=== PATIENT | female | born 2000 | race Two or more races ===

== ENCOUNTER 2018-02-26 16:20 | Emergency (ER) | payer BC, OTHER ==
[~2018-02-26] VITALS: Ht 154.9 cm; Wt 57.2 kg
[2018-02-26 16:41] VITALS: BP 133/82
== END 2018-02-26 17:38 | disposition home or self-care (01) ==
LOC: ER 16:24
DX: L05.91 Pilonidal cyst without abscess (principal)

== ENCOUNTER 2018-03-03 17:17 | Emergency (ER) | payer BC ==
[~2018-03-03] VITALS: Ht 152.4 cm; Wt 57.2 kg
[2018-03-03 17:40] VITALS: BP 135/91
[2018-03-03] MEDS ORDERED: ACETAMINOPHEN/CODEINE#3 (300/30mg) TAB PO ONE (19:15)
[2018-03-03] MEDS ORDERED: cefTRIAXone SOD 1,000 MG VL IM ONE (19:15)
[2018-03-03] MEDS ORDERED: LIDOCAINE W/ EPINEPHRINE 2% INJ 20ML VIAL ONE (20:28)
[2018-03-03] MEDS ORDERED: LIDOCAINE W/ EPINEPHRINE 2% INJ 20ML VIAL IJ ONE (21:00)
== END 2018-03-03 20:28 | disposition home or self-care (01) ==
LOC: ER 17:21
DX: L05.01 Pilonidal cyst with abscess (principal)
CPT/HCPCS: 10080; 96372; 99284; J0696

== ENCOUNTER 2018-03-05 17:36 | Emergency (ER) | payer BC ==
[~2018-03-05] VITALS: Ht 152.4 cm; Wt 57.2 kg
[2018-03-05 17:40] VITALS: BP 110/78
== END 2018-03-05 18:57 | disposition home or self-care (01) ==
LOC: ER 17:36
DX: L05.01 Pilonidal cyst with abscess (principal)

== ENCOUNTER → 2018-03-09 | Outpatient (CLI) | payer BC ==
[2018-03-09 07:40] LABS: Urine Bacteria FEW /hpf (None Seen); Urine Blood Negative /uL (Negative); Urine Mucus FEW (None Seen); Urine Specific Gravity 1.021 (1.001-1.035); Urine WBC 1 /hpf (0 - 5)
[2018-03-09 07:41] LABS: Basophils # (auto) 0.1 uL; Basophils % (auto) 0.7 % (0.0-2.0); Eosinophils # (auto) 0.1 uL; Eosinophils % (auto) 1.2 % (0.0-7.0); Hematocrit 37.8 % (36.0-46.0); Hemoglobin 13.3 g/dL (12.2-16.2); Lymphocytes # (auto) 2.3 uL; Mean Corpuscular Hemoglobin 32.5 pg (28.0-32.0); Mean Corpuscular Hgb Conc. 35.2 g/dL (32.0-36.0); Mean Corpuscular Volume 92.4 fL (80.0-100.0); Monocytes # (auto) 0.5 uL; Monocytes % (auto) 5.5 % (0.0-12.0); Neutrophils # (auto) 5.7 uL; Neutrophils % (auto) 65.6 % (37.0-80.0); Nucleated Red Blood Cells % 0.1 %; Platelet Count (auto) 224 10^3/uL (140-450); Red Cell Distribution Width 12.6 % (11.8-14.3); White Blood Cell 8.6 10^3/uL (4.4-10.8)
[2018-03-09 08:46] LABS: Albumin 3.9 g/dL (3.4-5.0); BUN/Creatinine Ratio 13.8; Bilirubin, Total 0.4 mg/dL (0.2-1.0); Calcium 8.9 mg/dL (8.5-10.1); Potassium 3.8 mmol/L (3.5-5.1); Total Protein 8.4 g/dL (6.4-8.2)
== END | disposition home or self-care (01) ==
LOC: LAB 07:13
PROVIDERS: ATTEND Internal Medicine
DX: Z00.01 Encounter for general adult medical examination with abnormal findings (principal); L05.91 Pilonidal cyst without abscess
CPT/HCPCS: 36415; 80053; 80061; 81001; 84439; 84443; 85025; 85652

== ENCOUNTER → 2019-01-09 | Outpatient (CLI) | payer BC ==
[2019-01-09 15:55] LABS: Urine WBC None Seen /hpf (0 - 5)
[2019-01-09 16:04] LABS: Basophils # (auto) 0.1 uL; Basophils % (auto) 0.8 % (0.0-2.0); Eosinophils # (auto) 0.1 uL; Eosinophils % (auto) 1.5 % (0.0-7.0); Lymphocytes # (auto) 2.5 uL; Lymphocytes % (auto) 30.6 % (10.0-50.0); Mean Corpuscular Hemoglobin 31.3 pg (28.0-32.0); Mean Corpuscular Hgb Conc. 34.1 g/dL (32.0-36.0); Mean Corpuscular Volume 91.9 fL (80.0-100.0); Monocytes # (auto) 0.5 uL; Monocytes % (auto) 6.2 % (0.0-12.0); Neutrophils % (auto) 60.9 % (37.0-80.0); Nucleated Red Blood Cells % 0.1 %; Platelet Count (auto) 155 10^3/uL (140-450); Red Blood Cells 4.14 10^6/uL (4.0-5.20); Red Cell Distribution Width 13.8 % (11.8-14.3); White Blood Cell 8.1 10^3/uL (4.4-10.8)
[2019-01-09 16:17] LABS: Albumin 4.1 g/dL (3.4-5.0); BUN/Creatinine Ratio 14.1; Calcium 8.9 mg/dL (8.5-10.1); Potassium 3.6 mmol/L (3.5-5.1)
[2019-01-09 16:21] LABS: Bilirubin, Total 0.4 mg/dL (0.2-1.0); Total Protein 8.4 g/dL (6.4-8.2)
[2019-01-09 16:29] LABS: Urine Bacteria NONE SEEN /hpf (None Seen); Urine Blood Negative /uL (Negative); Urine Specific Gravity 1.016 (1.001-1.035)
== END | disposition home or self-care (01) ==
LOC: LAB 15:14
PROVIDERS: ATTEND Internal Medicine
DX: L74.510 Primary focal hyperhidrosis, axilla (principal)
CPT/HCPCS: 36415; 80053; 81001; 84439; 84443; 85025; 85652; 86706

== ENCOUNTER → 2019-12-27 | Outpatient (CLI) | payer BC ==
[2019-12-27 12:30] LABS: Basophils # (auto) 0 10 ^3/uL (0-0.2); Basophils % (auto) 0.3 % (0.0-2.0); Eosinophils # (auto) 0.1 10 ^3/uL (0-0.8); Eosinophils % (auto) 1.1 % (0.0-7.0); Hematocrit 39.5 % (36.0-46.0); Hemoglobin 13.4 g/dL (12.2-16.2); Lymphocytes # (auto) 2.1 10 ^3/uL (0.4-5.4); Lymphocytes % (auto) 28.4 % (10.0-50.0); Mean Corpuscular Hemoglobin 31.7 pg (28.0-32.0); Mean Corpuscular Hgb Conc. 33.9 g/dL (32.0-36.0); Mean Corpuscular Volume 93.6 fL (80.0-100.0); Monocytes # (auto) 0.3 10 ^3/uL (0-1.3); Monocytes % (auto) 4.5 % (0.0-12.0); Neutrophils % (auto) 65.7 % (37.0-80.0); Platelet Count (auto) 167 10^3/uL (140-450); Red Blood Cells 4.22 10^6/uL (4.0-5.20); Red Cell Distribution Width 12.8 % (11.8-14.3); White Blood Cell 7.6 10^3/uL (4.4-10.8)
[2019-12-27 13:25] LABS: Calcium 9.2 mg/dL (8.5-10.1); Potassium 3.7 mmol/L (3.5-5.1)
[2019-12-27 13:29] LABS: BUN/Creatinine Ratio 11.6; Bilirubin, Total 0.7 mg/dL (0.2-1.0); Total Protein 8.4 g/dL (6.4-8.2)
== END | disposition home or self-care (01) ==
LOC: LAB 12:07
PROVIDERS: ATTEND Internal Medicine
DX: H01.114 Allergic dermatitis of left upper eyelid (principal)
CPT/HCPCS: 36415; 80053; 82785; 85025; 85652; 86706

== ENCOUNTER → 2021-01-15 | Outpatient (CLI) | payer BC ==
[2021-01-15 10:26] LABS: Band Neutrophils % (manual) 0; Basophils % (manual) 0 (0.0-2.0); Blast Cells 0; Eosinophils % (manual) 0 (0-7); Metamyelocytes % 0; Myelocytes % 0; Promyelocytes % 0; Reactive Lymphocytes 0
[2021-01-15 10:29] LABS: Hematocrit 38.8 % (36.0-46.0); Hemoglobin 13.8 g/dL (12.2-16.2); Mean Corpuscular Hemoglobin 32.2 pg (28.0-32.0); Mean Corpuscular Hgb Conc. 35.5 g/dL (32.0-36.0); Mean Corpuscular Volume 90.5 fL (80.0-100.0); Red Blood Cells 4.29 10^6/uL (4.0-5.20); Red Cell Distribution Width 13.2 % (11.8-14.3); White Blood Cell 7.1 10^3/uL (4.4-10.8)
[2021-01-15 11:17] LABS: Albumin 4.1 g/dL (3.4-5.0); Calcium 9.4 mg/dL (8.5-10.1); Potassium 4.3 mmol/L (3.5-5.1)
[2021-01-15 11:20] LABS: BUN/Creatinine Ratio 12.2; Bilirubin, Total 0.9 mg/dL (0.2-1.0); Total Protein 8.8 g/dL (6.4-8.2)
[2021-01-15 11:22] LABS: Lymphocytes % (manual) 29 (10.0-50.0); Monocytes % (manual) 8 (0-12)
== END | disposition home or self-care (01) ==
LOC: LAB 09:58
PROVIDERS: ATTEND Internal Medicine
DX: Z00.00 Encounter for general adult medical examination without abnormal findings (principal); J30.2 Other seasonal allergic rhinitis
CPT/HCPCS: 36415; 80053; 82785; 85027; 85652

== ENCOUNTER → 2021-07-28 | Outpatient (CLI) | payer BC ==
[2021-07-28 10:49] LABS: Basophils # (auto) 0 10 ^3/uL (0-0.2); Basophils % (auto) 0.5 % (0.0-2.0); Eosinophils # (auto) 0.2 10 ^3/uL (0-0.8); Eosinophils % (auto) 2.3 % (0.0-7.0); Hematocrit 40.1 % (36.0-46.0); Hemoglobin 13.7 g/dL (12.2-16.2); Lymphocytes # (auto) 1.8 10 ^3/uL (0.4-5.4); Lymphocytes % (auto) 26.1 % (10.0-50.0); Mean Corpuscular Hemoglobin 32.4 pg (28.0-32.0); Mean Corpuscular Hgb Conc. 34.2 g/dL (32.0-36.0); Mean Corpuscular Volume 94.6 fL (80.0-100.0); Monocytes # (auto) 0.3 10 ^3/uL (0-1.3); Monocytes % (auto) 4.2 % (0.0-12.0); Neutrophils # (auto) 4.6 10 ^3/uL (1.6-8.6); Neutrophils % (auto) 66.9 % (37.0-80.0); Nucleated Red Blood Cells % 0.3 %; Red Blood Cells 4.24 10^6/uL (4.0-5.20); Red Cell Distribution Width 12.8 % (11.8-14.3); White Blood Cell 6.9 10^3/uL (4.4-10.8)
[2021-07-28 10:56] LABS: Albumin 4.1 g/dL (3.4-5.0); Calcium 9.5 mg/dL (8.5-10.1); Potassium 3.5 mmol/L (3.5-5.1)
[2021-07-28 11:00] LABS: BUN/Creatinine Ratio 12.5; Total Protein 8.2 g/dL (6.4-8.2)
== END | disposition home or self-care (01) ==
LOC: LAB 08:36
PROVIDERS: ATTEND Internal Medicine
DX: Z01.84 Encounter for antibody response examination (principal); L30.9 Dermatitis, unspecified
CPT/HCPCS: 36415; 80053; 84439; 84443; 85025; 85652; 86706; 86735; 86762; 86765; 86787

== ENCOUNTER 2022-12-26 11:32 | Emergency (ER) | payer BC ==
[~2022-12-26] VITALS: Ht 152.4 cm; Wt 60.4 kg
[2022-12-26 12:16] VITALS: BP 122/80
[2022-12-26] MEDS ORDERED: CEPH500C PO (12:47)
== END 2022-12-26 12:54 | disposition home or self-care (01) ==
LOC: ER 11:32
DX: D17.79 Benign lipomatous neoplasm of other sites (principal)

== ENCOUNTER → 2023-06-11 | Outpatient (CLI) | payer BC ==
[~2023-06-11] MED LIST: CEPH500C PO
[2023-06-11 09:06] LABS: Basophils # (auto) 0 10 ^3/uL (0-0.2); Basophils % (auto) 0.4 % (0.0-2.0); Eosinophils # (auto) 0.1 10 ^3/uL (0-0.8); Eosinophils % (auto) 2.2 % (0.0-7.0); Hematocrit 40.6 % (36.0-46.0); Hemoglobin 13.8 g/dL (12.2-16.2); Lymphocytes # (auto) 2.5 10 ^3/uL (0.4-5.4); Lymphocytes % (auto) 38.8 % (10.0-50.0); Mean Corpuscular Hemoglobin 31.8 pg (28.0-32.0); Mean Corpuscular Hgb Conc. 34.1 g/dL (32.0-36.0); Mean Corpuscular Volume 93.2 fL (80.0-100.0); Monocytes # (auto) 0.4 10 ^3/uL (0-1.3); Monocytes % (auto) 5.8 % (0.0-12.0); Neutrophils # (auto) 3.4 10 ^3/uL (1.6-8.6); Neutrophils % (auto) 52.8 % (37.0-80.0); Red Blood Cells 4.36 10^6/uL (4.0-5.20); Red Cell Distribution Width 12.6 % (11.8-14.3); White Blood Cell 6.4 10^3/uL (4.4-10.8)
[2023-06-11 09:38] LABS: Alanine Aminotransferase 32 U/L (7-40); Albumin 4.7 g/dL (3.2-4.8); Alkaline Phosphatase 56 U/L (46-116); Anion Gap 9 (5-15); Aspartate Aminotransferase 25 U/L (13-40); BUN/Creatinine Ratio 11.8 (10.0-20.0); Bilirubin, Total 0.6 mg/dL (0.2-1.0); Blood Urea Nitrogen 8 mg/dL (9-23); Calcium 9.6 mg/dL (8.5-10.1); Carbon Dioxide 25 mmol/L (20-30); Chloride 104 mmol/L (98-107); Cholesterol 142 mg/dL (< 200); Glucose 95 mg/dL (74-106); HDL Cholesterol 50 mg/dL (40-59); LDL Cholesterol 89 mg/dL (< 100); Sodium 138 mmol/L (136-145); Total Protein 7.6 g/dL (5.7-8.2); Triglycerides 94 mg/dL (< 150)
[2023-06-11 09:49] LABS: Erythrocyte Sedimentation Rate 9 mm/hr (0-20)
[2023-06-11 10:04] LABS: Urine Bacteria NONE SEEN /hpf (None Seen); Urine Blood Negative /uL (Negative); Urine Clarity Clear (Clear); Urine Color Colorless (Yellow); Urine Protein, UAD Negative (Negative); Urine Specific Gravity 1.021 (1.001-1.035); Urine Urobilinogen Normal (Negative); Urine WBC 1 /hpf (0 - 5)
== END | disposition home or self-care (01) ==
LOC: LAB 08:52
PROVIDERS: ATTEND Internal Medicine
DX: B35.1 Tinea unguium (principal)
CPT/HCPCS: 36415; 80053; 80061; 81001; 84439; 84443; 85025; 85652

== ENCOUNTER → 2024-01-24 | Outpatient (CLI) | payer BC ==
[2024-01-24 11:10] LABS: Albumin 4.7 g/dL (3.2-4.8)
[2024-01-24 11:11] LABS: Bilirubin, Direct 0.2 mg/dL (<0.3); Bilirubin, Total 0.6 mg/dL (0.2-1.0); Total Protein 7.6 g/dL (5.7-8.2)
== END | disposition home or self-care (01) ==
LOC: LAB 10:28
PROVIDERS: ATTEND Student in an Organized Health Care Education/Training Program
DX: B35.1 Tinea unguium (principal)
CPT/HCPCS: 36415; 80076

== ENCOUNTER → 2024-03-03 | Outpatient (CLI) | payer BC ==
[2024-03-03 07:43] LABS: Albumin 4.8 g/dL (3.2-4.8); Bilirubin, Direct 0.2 mg/dL (<0.3); Bilirubin, Total 0.6 mg/dL (0.2-1.0); Total Protein 7.6 g/dL (5.7-8.2)
== END | disposition home or self-care (01) ==
LOC: LAB 06:47
PROVIDERS: ATTEND Student in an Organized Health Care Education/Training Program
DX: B35.1 Tinea unguium (principal)
CPT/HCPCS: 36415; 80076

== ENCOUNTER → 2024-06-01 | Outpatient (CLI) | payer BC ==
[2024-06-01 11:50] LABS: Albumin 4.6 g/dL (3.2-4.8); Bilirubin, Direct 0.2 mg/dL (<0.3); Bilirubin, Total 0.5 mg/dL (0.2-1.0); Total Protein 7.7 g/dL (5.7-8.2)
== END | disposition home or self-care (01) ==
LOC: LAB 10:50
PROVIDERS: ATTEND Student in an Organized Health Care Education/Training Program
DX: B35.1 Tinea unguium (principal)
CPT/HCPCS: 36415; 80076